=== PATIENT | male | born 1940 | race Caucasian/White ===

== ENCOUNTER 2018-11-02 13:34 | Emergency (ER) | payer OTHER, MEDICARE ==
[~2018-11-02] VITALS: Ht 182.9 cm; Wt 79.4 kg
[2018-11-02] MEDS ORDERED: LOVASTATIN 20 M20 MG PO (13:43)
[2018-11-02] MEDS ORDERED: PREDNISONE 20 M20 MG PO (15:24)
[2018-11-02] MEDS ORDERED: EPIPEN 2-P0.3 MG/0.3 IM (15:24)
[2018-11-02 15:49] VITALS: BP 158/71
--- NOTE | 2018-11-03 13:39 | EKG ---
[place] [address] [facility] [place] [address] ELECTROCARDIOGRAM REPORT Name: AFIA CHURCHILL Room #: [facility]#: [id number] ������������������ Admission: 11/02/18 ������������������ Attend Phys: Discharge: 11/02/18 ������������������ Date of : 44 Report #: [id number] ����������������������������������������������������������������� [id number] THIS REPORT FOR: //name// [facility] ED Test Date: 2018-11-02 Test Time: 15:13:45 Pat Name: AFIA CHURCHILL Department: Room: Gender: [employer]: [facility] : 1940 Requested By: Cata Posey Order Number: [id number] MD: Homer Coughlin Measurements Intervals [place] Rate: 53 P: 70 MN: 204 QRS: 14 QRSD: 96 T: 38 QT: 451 QTc: 424 Interpretive Statements Sinus bradycardia First-degree AV block No previous ECG available for comparison Electronically Signed On 11-03-2018 13:39:02 CDT by Homer Coughlin [email or web address] ��������������������������������������������� <ELECTRONICALLY SIGNED> ���������������������������������������� By: Homer Coughlin MD, [facility] ��������������������������������������������� 11/03/18 1339 1513 1513 Homer Coughlin MD, FACC /EPI
== END 2018-11-02 15:51 | disposition home or self-care (01) ==
LOC: ER 13:34
DX: T63.441A Toxic effect of venom of bees, accidental (unintentional), initial encounter (principal); Y92.89 Other specified places as the place of occurrence of the external cause; Z88.5 Allergy status to narcotic agent